=== PATIENT | female | born 1970 | race Caucasian/White ===

== ENCOUNTER 2017-09-13 08:36 | Inpatient (IN) | payer OTHER ==
[~2017-09-13] VITALS: Ht 167.6 cm; Wt 127.0 kg
[2017-09-13 08:40] VITALS: BP 136/74; PULSE 87; RESP 18; TEMP 98.8; O2SAT 100
[2017-09-13] MEDS ORDERED: TETANUS/DIPHTHERIA TOXOID ADULT 0.5 ML VIAL IM ONE (08:45)
[2017-09-13] MEDS ORDERED: METF500T PO (08:48)
[2017-09-13] MEDS ORDERED: LISI-515 PO (08:48)
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
[2017-09-13] MEDS ORDERED: ONDANSETRON HCL 4 MG/2 ML VIAL IM ONE (10:30)
[2017-09-13] MEDS ORDERED: MORPHINE SULFATE 8 MG/ML INJ IM ONE (10:30)
[2017-09-13 11:59] VITALS: BP 120/75; PULSE 97; RESP 20; O2SAT 97
[2017-09-13 12:38] LABS: AUTOMATED NEUTROPHIL # 11.4 TH/MM3 (1.8-7.7); BASOPHIL % 0.1 % (0.0-2.0); EOSINOPHIL % 0.3 % (0.0-4.0); HEMATOCRIT 37.4 % (35.0-46.0); HEMOGLOBIN 12.3 GM/DL (11.6-15.3); LYMPH % 8.9 % (9.0-44.0); LYMPHOCYTE # 1.1 TH/MM3 (1.0-4.8); MEAN CELL VOLUME 76.5 FL (80.0-100.0); MEAN CORPUSCULAR HEMOGLOBIN 25.1 PG (27.0-34.0); MEAN CORPUSCULAR HGB CONC 32.8 % (32.0-36.0); MEAN PLATELET VOLUME 7.9 FL (7.0-11.0); MONO % 3.2 % (0.0-8.0); MONOCYTE # 0.4 TH/MM3 (0-0.9); NEUT % 87.5 % (16.0-70.0); PLATELET COUNT 238 TH/MM3 (150-450); RED BLOOD COUNT 4.89 MIL/MM3 (4.00-5.30); RED CELL DISTRIBUTION WIDTH 14.2 % (11.6-17.2); WHITE BLOOD COUNT 12.9 TH/MM3 (4.0-11.0)
[2017-09-13 12:49] LABS: BICARBONATE 29.9 MEQ/L (21.0-32.0); CALCIUM 8.6 MG/DL (8.5-10.1)
[2017-09-13 12:52] LABS: PROTHROMBIN TIME - PATIENT 10.1 SEC (9.8-11.6)
[2017-09-13 12:53] LABS: CREATININE 0.78 MG/DL (0.50-1.00)
[2017-09-13] MEDS ORDERED: ONDANSETRON HCL 4 MG/2 ML VIAL IVP PRN (13:00)
[2017-09-13] MEDS ORDERED: SENNOSIDES 8.6 MG TAB PO PRN (13:00)
[2017-09-13] MEDS ORDERED: ACETAMINOPHEN 325 MG TAB PO PRN (13:00)
[2017-09-13] MEDS ORDERED: BISACODYL 10 MG SUPP RECTAL PRN (13:00)
[2017-09-13] MEDS ORDERED: SODIUM CHLORIDE 0.9% FLUSH 10 ML FLUSH IV FLUSH PRN (13:00)
[2017-09-13] MEDS ORDERED: MAGNESIUM HYDROXIDE SUSP 30 ML CUP PO PRN (13:00)
[2017-09-13] MEDS ORDERED: NALOXONE HCL 0.4 MG/ML AMP IV PUSH PRN (13:00)
[2017-09-13] MEDS ORDERED: DEXTROSE 50% IN WATER 50 ML VIAL(D50) IV PUSH PRN (13:00)
[2017-09-13] MEDS ORDERED: GLUCAGON 1 MG/ML VIAL OTHER PRN (13:00)
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
[2017-09-13] MEDS ORDERED: ACETAMINOPHEN/HYDROcodone 325 MG/5 MG TAB PO PRN (13:30)
[2017-09-13 14:49] VITALS: BP 127/75; PULSE 85; RESP 18; O2SAT 98
[2017-09-13] MEDS: ACETAMINOPHEN/HYDROcodone 325 MG/5 MG TAB PO PRN ×2 (14:49→20:50)
[2017-09-13 16:19] LABS: BILIRUBIN, URINE NEG (NEG); BLOOD, URINE NEG (NEG); GLUCOSE,URINE NEG (NEG); KETONE, URINE NEG (NEG); NITRITE,URINE NEG (NEG); PH, URINE 5.5 (5.0-8.5); URINE COLOR YELLOW (YELLW/STRAW); URINE LEUKOCYTE ESTERASE NEG (NEG)
[2017-09-13 16:38] LABS: RBC, URINE 0-3 /hpf (0-3); SQUAMOUS EPITHELIAL CELL URINE 0-5 /hpf (0-5); WBC, URINE 0-2 /hpf (0-5)
[2017-09-13] MEDS: INSULIN ASPART SUPPLEMENTAL SCALE SQ SCH ×2 (17:00→20:50)
[2017-09-13 17:06] VITALS: BP 124/63; PULSE 85; RESP 18; O2SAT 98
[2017-09-13 18:44] LABS: CHOLESTEROL 159 MG/DL (120-200)
[2017-09-13 18:46] LABS: CHOLESTEROL/ HDL RATIO 3.27 RATIO; HDL CHOLESTEROL 48.5 MG/DL (40.0-60.0); LDL CHOLESTEROL 87 MG/DL (0-99); TRIGLYCERIDES 116 MG/DL (42-150)
[2017-09-13 20:00] VITALS: BP 137/72; PULSE 92; RESP 16; TEMP 97.7; O2SAT 96
[2017-09-13] MEDS: SODIUM CHLORIDE 0.9% FLUSH 10 ML FLUSH IV FLUSH SCH (20:50)
[2017-09-13] MEDS: DOCUSATE SODIUM 50 MG/SENNA 8.6 MG TAB PO SCH (20:50)
[2017-09-14] VITALS: BP 113/66; PULSE 74; RESP 16; TEMP 97; O2SAT 96
--- NOTE | 2017-09-14 00:07 | EKG ---
Date Performed: 09/13/2017 Time Performed: 12:46:23 PTAGE: 47 years EKG: Sinus rhythm LOW QRS VOLTAGE IN PRECORDIAL LEADS BORDERLINE ECG NO PREVIOUS TRACING DOCTOR: Sergio Solorio Interpretating Date/Time 09/14/2017 00:06:28
[2017-09-14] MEDS ORDERED: LACTATED RINGER'S 1000 ML IV PRN (00:45)
[2017-09-14] MEDS ORDERED: CHLORHEXIDINE GLUCONATE 2 % 1 PACK (2 CLOTHS) TOPICAL PRN (00:45)
[2017-09-14] MEDS ORDERED: POVIDONE IODINE 5% (ANTISEPSIS KIT) 4 APPLICATIONS EACH NARE PRN (00:45)
[2017-09-14 04:00] VITALS: BP 97/52; PULSE 76; RESP 16; TEMP 97.2; O2SAT 95
[2017-09-14] MEDS ORDERED: ACETAMINOPHEN 1000 MG/100 ML 100 ML IV ONE (06:34)
[2017-09-14] MEDS ORDERED: GENTAMICIN SULFATE 80 MG/2 ML VIAL ONE (07:08)
[2017-09-14] MEDS ORDERED: VANCOMYCIN HCL 1000 MG VIAL ONE (07:09)
[2017-09-14] MEDS ORDERED: ceFAZolin 2 GM PREMIX 50 ML ONE (07:09)
[2017-09-14] MEDS ORDERED: BUPIVACAINE/EPINEPHRINE 0.25% PF 10 ML VIAL ONE (07:10)
[2017-09-14] MEDS ORDERED: HYDR-3580 PO (07:28)
[2017-09-14] MEDS: INSULIN ASPART SUPPLEMENTAL SCALE SQ SCH ×2 (08:00→10:46)
[2017-09-14] MEDS ORDERED: MORPHINE SULFATE 4 MG/ML INJ IV PUSH PRN (08:30)
--- NOTE | 2017-09-14 08:31 | PD.OP ---
cc: Tahir Saldana MD Operative Report Date of Surgery: Sep 14, 2017 Preoperative Diagnosis: Displaced left radial shaft fracture, nondisplaced left fourth finger distal phalanx fracture Postoperative Diagnosis: Procedure: Open reduction internal fixation left radial shaft fracture Anesthesia: Gen. Surgeon: Tahir Saldana Professional Engineer(s): RICARDO Foster PA-C The surgical procedure was assisted by my physician occupational therapist assistant. My P.A. presence was necessary throughout this case for the manipulation and positioning of the surgical extremity. My P.A. was assisting me throughout the duration of this procedure. The skill set of a physician occupational therapist assistant was medically necessary to complete this procedure. During the surgical case the surgical forceps fabricator was working at the back table and the physician occupational therapist assistant was directly assisting me. Operation and Findings: Patient was seen and examined preoperatively. Patient was found to have displaced left radial shaft fractures. Informed consent was obtained and operative site was marked. Patient was brought to operating room and given IV sedation and general anesthesia. Timeout procedure was performed. Operative extremity was prepped and draped with alcohol followed by Hibiclens and draped in usual sterile fashion. IV antibiotics were administered prior to incision. Next attention was turned to the radius. A 5 inch incision was made over the volar aspect of the forearm. A standard volar approach was utilized. The interval between the radial artery and superficial radial nerve was identified. Neurovascular structures were protected. Soft tissue was elevated off the bone. Fracture site was visualized. Fracture fragments were carefully reduced. Each fracture fragment keyed in anatomic alignment. K wires were used to hold provisional fixation. A ITS plate was contoured to fit the radius. Plate was provisionally held with K wires. 3.5 cortical screws were used to compress plate to bone. Multiple screws were placed in each side of fracture. K wires were removed. Final fluoroscopy revealed excellent of fracture with well-placed hardware. The distal radioulnar joint was reduced and stable. The fourth finger distal phalanx fracture was also visualized. This fracture was well aligned. Sterile dressings were applied with Xeroform 4 x 4 soft roll and Jose wrap. A finger splint was placed onto the fourth finger . Patient was awakened and transferred to recovery room in stable condition. Forearm compartments were soft and compressible. Tahir Saldana MD Sep 14, 2017 08:31
[2017-09-14] MEDS ORDERED: LISINOPRIL 20 MG TAB PO SCH (09:00)
[2017-09-14] MEDS ORDERED: DO NOT ADM ANY ANTICOAGULANT DRUGS PRN (09:00)
[2017-09-14] MEDS: DOCUSATE SODIUM 50 MG/SENNA 8.6 MG TAB PO SCH (09:00)
[2017-09-14] MEDS ORDERED: *MEPERIDINE 25 MG INJ VIAL PERIprocedural Use ONLY ONE (09:01)
[2017-09-14] MEDS ORDERED: MIDAZOLAM HCL 2 MG/2 ML VIAL ONE (09:04)
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
--- NOTE | 2017-09-14 09:26 | PD.ORT.PN ---
Subjective Subjective Remarks POD 0 s/p ORIF left radial shaft s/p left 4th distal phalanx fx stable in PACU Objective Vitals Vital Signs Date Time Temp Pulse Resp B/P (MAP) Pulse Ox O2 Delivery O2 Flow Rate FiO2 09/14/17 09:01 97.9 78 20 113/55 (74) 95 Nasal Cannula 2 09/14/17 04:00 97.2 76 16 97/52 (67) 95 09/14/17 00:00 97.0 74 16 113/66 (82) 96 09/13/17 20:00 97.7 92 16 137/72 (93) 96 09/13/17 17:21 09/13/17 17:06 85 18 124/63 (83) 98 Room Air 09/13/17 14:49 85 18 127/75 (92) 98 Room Air 09/13/17 11:59 97 20 120/75 (90) 97 Room Air I/O 09/13/17 09/13/17 09/13/17 09/14/17 09/14/17 09/14/17 07:00 15:00 23:00 07:00 15:00 23:00 Intake Total 1000 ml Output Total 25 ml Balance 975 ml Intake Other 1000 ml Output Estimated Blood Loss 25 ml Result Diagram: 09/13/17 1225 09/13/17 1225 Other Results Laboratory Tests Test 09/13/17 12:25 Prothromb Time International Ratio 1.0 RATIO Prothrombin Time 10.1 SEC (9.8-11.6) Imaging Last 24 hours Impressions Wrist X-Ray 09/13/17 0952 Signed Impressions: Service Date/Time: September 09:57 - CONCLUSION: 1. Angulated fracture of the distal radius. 2. Mild posterior subluxation of the distal ulna. Jh Bull MD Objective Remarks LUE: dressings clean and dry. intact. NVI. +finger splint over 4th digit Assessment & Plan Assessment and Plan 1) Left Radial Shaft Fx s/p ORIF - POD 0 -NWB -daily dressing changes POD 2 -maintain finger splint -ortho cleared for DC home -f/u with Jenna or PA in 2 weeks Hubert Ozuna/Grades 9 12 Tutor DULCE Sep 14, 2017 09:26
--- NOTE | 2017-09-14 09:26 | HHI.FF ---
Face to Face Verification Diagnosis: (1) Fracture of forearm Nursing Dressing Changes: Daily dressing change, Xeroform, Coverderm/Primapore I have seen patient Autumn Borden on 09/14/17. My clinical findings support the need for the requested home health care services because: Ltd mobility - disease progression I certify that my clinical findings support that this patient is homebound because: Post-op weakness Hubert Ozuna/Grades 1 Through 6 Teacher PA Sep 14, 2017 09:26
[2017-09-14] MEDS: SODIUM CHLORIDE 0.9% FLUSH 10 ML FLUSH IV FLUSH SCH (10:45)
[2017-09-14] MEDS: ACETAMINOPHEN/HYDROcodone 325 MG/10 MG TAB PO PRN ×2 (10:46→14:49)
[2017-09-14 11:00] VITALS: BP 106/63; PULSE 77; RESP 16; TEMP 98; O2SAT 97
[2017-09-14] MEDS ORDERED: ceFAZolin INJ 1,000 MG VIAL IV ONE (12:00)
[2017-09-14] MEDS ORDERED: PROPOFOL 200 MG/20 ML AMP IV ONE (12:00)
[2017-09-14] MEDS ORDERED: ONDANSETRON HCL 4 MG/2 ML VIAL IV ONE (12:00)
[2017-09-14] MEDS ORDERED: DEXAMETHASONE SOD PHOS 4 MG/ML VIAL IV ONE (12:00)
[2017-09-14] MEDS ORDERED: LIDOCAINE HCL 1% PF 5 ML SYRINGE OTHER ONE (12:00)
[2017-09-14] MEDS ORDERED: LACTATED RINGER'S 1000 ML INJ 1,000 ML IV ONE (12:00)
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
--- NOTE | 2017-09-14 15:23 | RADRPT ---
EXAM DATE/TIME: 09/14/2017 08:20 [facility] COMPARISON: FOREARM LEFT (2VWS), September 13, 2017, 8:48. INDICATIONS : Left forearm open reduction internal fixation. MEDICAL HISTORY : None. SURGICAL HISTORY : None. ENCOUNTER: Initial ACUITY: 1 day PAIN SCORE: Non-responsive. LOCATION: Left forearm FINDINGS: Abdominal alignment. Plate and screws are bridging the radial fracture. CONCLUSION: Anatomic alignment Eric Brooks MD FACR on September 14, 2017 at 15:21 Board Certified Radiologist. This report was verified electronically.
== END 2017-09-14 15:17 | disposition home or self-care (01) | DRG 512 ==
LOC: PHED 08:36 → PHEDA 12:28 → N06B 17:52
PROVIDERS: ADMIT Hospitalist; ATTEND Hospitalist
PROC: 0PSJ04Z Reposition Left Radius with Internal Fixation Device, Open Approach (ICD-10-PCS; principal; 2017-09-14 07:31)
DX: S52.502A Unspecified fracture of the lower end of left radius, initial encounter for closed fracture (principal); I10 Essential (primary) hypertension; S62.655A Nondisplaced fracture of middle phalanx of left ring finger, initial encounter for closed fracture; S63.072A Subluxation of distal end of left ulna, initial encounter; E11.9 Type 2 diabetes mellitus without complications; V43.52XA Car driver injured in collision with other type car in traffic accident, initial encounter; Y92.481 Parking lot as the place of occurrence of the external cause; Z79.84 Long term (current) use of oral hypoglycemic drugs
CPT/HCPCS: 73090; 73110; 73130; 76000; 80048; 80061; 81001; 82948; 83036; 85025; 85610; 85730; 90471; 90714; 93005; 96372; C1713; J0131; J0690; J1100; J1580; J1815; J2175; J2250; J2270; J2405; J3010; J3370; J7120